=== PATIENT | female | born 1985 | race Caucasian/White ===

== ENCOUNTER 2019-01-19 11:38 | Outpatient (CLI) | payer BC, OTHER | END 2019-01-19 11:39 | disposition home or self-care (01) | LOC: DTY/OP 11:38 | PROVIDERS: ATTEND Obstetrics & Gynecology | DX: O24.410 Gestational diabetes mellitus in pregnancy, diet controlled (principal); Z71.3 Dietary counseling and surveillance | CPT/HCPCS: 97802 ==